=== PATIENT | male | born 1970 | race Two or more races ===

== ENCOUNTER 2020-08-07 08:37 | Inpatient (IN) | payer OTHER ==
[~2020-08-07] VITALS: Ht 175.3 cm; Wt 78.0 kg
[2020-08-07] VITALS (20 sets, daily range): BP systolic 101–133; BP diastolic 65–86
--- NOTE | 2020-08-07 07:14 | Anethesia Preoperative Eval ---
Anesthesia Pre-op PMH/ROS General Date of Evaluation: Aug 07, 2020 Anesthesiologist: Raman ASA Score: ASA 2 Mallampati Score Class I : Soft palate, uvula, fauces, pillars visible Class II: Soft palate, uvula, fauces visible Class III: Soft palate, base of uvula visible Class IV: Only hard plate visible Mallampati Classification: Class II Surgeon: Elvira Diagnosis: Lumbar radiculopathy Surgical Procedure: Left L3-4 discectomy Anesthesia History: none Family History: no anesthesia problems Allergies: Coded Allergies: CEFTRIAXONE (Verified Allergy, Severe, ANAPHYLACTIC SHOCK, 08/07/20) PENICILLINS (Verified Allergy, Severe, ANAPHYLACTIC SHOCK, 08/07/20) Medications: see eMAR Patient NPO?: Yes NPO Date: Aug 07, 2020 NPO Time: 00:00 Past Medical History Cardiovascular: Denies: HTN, CAD, NC, valve dz, arrhythmia, other Pulmonary: Denies: asthma, COPD, [place], other Gastrointestinal/Genitourinary: Denies: GERD, CRI, ESRD, other Neurologic/Psychiatric: Reports: depression/anxiety; Denies: dementia, CVA, TIA, other Endocrine: Denies: DM, hypothyroidism, steroids, other HEENT: Denies: cataract (L), cataract (R), glaucoma, [place] (L), [place] (R), other Hematology/Immune: Denies: anemia, DVT, bleeding disorder, other Musculoskeletal/Integumentary: Denies: OA, RA, DJD, DDD, edema, other PSxH Narrative: hydrocele sx, bilateral shoulder arthroscpies Anesthesia Pre-op Phys. Exam Physician Exam see chart Constitutional: NAD Cardiovascular: RRR Respiratory: CTA Airway Exam Mallampati Score: Class II MO: full ROM: full Teeth: intact Anesthesia Pre-op A/P Labs see chart Studies Pre-op Studies: EKG - sr, other - covid neg Risk Assessment & Plan Assessment: ASA II Plan: GA Status Change Before Surgery: No Pre-Antibiotics Drug: Clindamycin 600mg Given Within 1 Hr of Incision: Yes Imani Camargo MD Aug 07, 2020 07:14
[~2020-08-07 08:37] MED LIST: ceFAZolin sod 1 GM in NS 55 ML IVPB ONE
[2020-08-07] MEDS ORDERED: XANAX0.5 MG ORAL (09:14)
[2020-08-07] MEDS ORDERED: ADVIL200 MG ORAL (09:14)
[2020-08-07] MEDS ORDERED: AMBIEN10 M1 ORAL (09:14)
[2020-08-07] MEDS ORDERED: Clindamycin 600mg 50 ML IV ONE (10:09)
[2020-08-07] MEDS ORDERED: Lidocaine 1% MPF 10mg/ml 5ml ONE (10:16)
[2020-08-07] MEDS ORDERED: fentaNYL 100 mcg/2 mL IV ONE (10:16)
[2020-08-07] MEDS ORDERED: Midazolam 2mg/2ml Inj ONE (10:17)
[2020-08-07] MEDS ORDERED: Vancomycin 1gm vial IVPB ONE (10:22)
[2020-08-07] MEDS ORDERED: EPINEPHrine 1mg/1ml Amp ONE (10:22)
[2020-08-07] MEDS ORDERED: Gelfoam Size TOPIC ONE (10:23)
[2020-08-07] MEDS ORDERED: Bacitracin 50000 Units Vial ONE (10:23)
[2020-08-07] MEDS ORDERED: Thrombin 5000 units TOPIC ONE (10:23)
[2020-08-07] MEDS ORDERED: Bupivacaine 0.5% Inj 30 ml vial INJ ONE (10:23)
--- NOTE | 2020-08-07 10:26 | Pre-Procedure Note/Attestation ---
Pre-Procedure Note/Attestation Complete Prior to Procedure Procedure Narrative: L34 L Discectomy Indications for Procedure Pre-Operative Diagnosis: L34 HNP Attestation I attest that I discussed the nature of the procedure; its benefits; risks and complications; and alternatives (and the risks and benefits of such alternatives), prior to the procedure, with the patient (or the patient's legal retail field representative). I attest that, if there was a reasonable possibility of needing a blood transfusion, the patient (or the patient's legal retail field representative) was given the [facility] standardized written summary, pursuant to the [place] Blood Safety Act ([place] Health and Safety Code # 1645, as amended). I attest that I re-evaluated the patient just prior to the surgery and that there has been no change in the patient's H&P, except as documented below: Nii Felix MD Aug 07, 2020 10:26
--- NOTE | 2020-08-07 10:28 | Brief Operative Note ---
Immediate Post Operative Note Operative Note Pre-op Diagnosis: L34 HNP Procedure: L34 Discectomy Post-op Diagnosis: same as pre-op Findings: consistent w/pre-op dx studies Surgeon: gavin Anesthesiologist: Raman Anesthesia: general Specimen: none Complications: none Condition: stable Fluids: 800 Estimated Blood Loss: minimal Drains: none Implant(s) used?: No Nii Felix MD Aug 07, 2020 10:28
[2020-08-07] MEDS ORDERED: Sterile Water Irrig 1000ml IRRIG ONE (10:30)
[2020-08-07] MEDS ORDERED: NS Irrig 1000ml ONE (10:30)
[2020-08-07] MEDS ORDERED: LR 1000ml ONE (10:30)
[2020-08-07] MEDS ORDERED: Metoclopramide 10mg/2ml Inj ONE (10:30)
[2020-08-07] MEDS ORDERED: LORazepam Inj 2mg/ml 1ml IV PRN (11:15)
[2020-08-07] MEDS ORDERED: Hydromorphone 0.5mg/0.5ml inj IVP PRN (11:15)
[2020-08-07] MEDS ORDERED: Midazolam 2mg/2ml Inj IVP PRN (11:15)
[2020-08-07] MEDS ORDERED: DiphenhydrAMINE 50mg/ml Inj IVP PRN (11:15)
[2020-08-07] MEDS ORDERED: LR 1000ml 1,000 ML IVLG SCH (11:15)
[2020-08-07] MEDS ORDERED: Metoclopramide 10mg/2ml Inj IVP PRN ×2 (11:15→12:15)
[2020-08-07] MEDS ORDERED: fentaNYL 100 mcg/2 mL IV PRN (11:15)
[2020-08-07] MEDS ORDERED: Milk of Magnesia 30ml Ud ORAL PRN (12:15)
--- NOTE | 2020-08-07 12:27 | Immediate Post-Op Evaluation ---
Immediate Post-Op Evalulation Immediate Post-Op Evalulation Procedure: Left L3-4 discectomy Date of Evaluation: Aug 07, 2020 Time of Evaluation: 12:30 IV Fluids: 800 Blood Products: 0 Estimated Blood Loss: 25 Urinary Output: 0 Blood Pressure Systolic: 101 Blood Pressure Diastolic: 65 Pulse Rate: 81 Respiratory Rate: 16 O2 Sat by Pulse Oximetry: 99 Temperature (Fahrenheit): 97.3 Pain Score (1-10): 0 Nausea: No Vomiting: No Complications 0 Patient Status: awake, reacts, patent, none Hydration Status: adequate Drug: Clindamycin Given Within 1 Hr of Incision: Yes Imani Camargo MD Aug 07, 2020 12:27
--- NOTE | 2020-08-07 13:56 | Diagnostic Imaging Report ---
INDICATION: Pain, intraoperative TECHNIQUE: Intraoperative imaging Fluoroscopy time: 3.8 seconds Total dose: 0.30789 mGym2 Total number of images: 1 COMPARISON: None FINDINGS: Intraoperative images demonstrate a surgical tool projected posterior to the L4 vertebral body. IMPRESSION: Intraoperative imaging, as described
[2020-08-07] MEDS: D5 1/2NS 1,000 ML IV SCH ×2 (14:28→23:26)
--- NOTE | 2020-08-07 14:30 | NUR ---
NURSE NOTES: patient was admitted to room 320-1 s/p left L3-4 diskectomy by . received report from Gracie Qureshi. a&Ox 4, verbally responsive. pain on left lower back to hip 6-05/04. lung sound clear. active bowel sound. IV on right hand. intact. surgical site on left lower back dressing intact. put ice bag for pain,checked and counted belongings with patient. bed in the lowest position and locked. call light within reach. will continue to provide plan of care.
--- NOTE | 2020-08-07 14:41 | 48 Hour Post Anesthesia Eval ---
Post Anesthesia Evaluation Procedure: Left L3-4 discectomy Date of Evaluation: Aug 07, 2020 Time of Evaluation: 14:40 Blood Pressure Systolic: 116 0: 72 Pulse Rate: 70 Respiratory Rate: 15 Temperature (Fahrenheit): 97.2 O2 Sat by Pulse Oximetry: 100 Airway: patent Nausea: No Vomiting: No Pain Intensity: 2 Hydration Status: adequate Cardiopulmonary Status: Stable Mental Status/LOC: patient returned to baseline Follow-up Care/Observations: 0 Post-Anesthesia Complications: 0 Follow-up care needed: N/A Nnamdi Jin MD Aug 07, 2020 14:41
--- NOTE | 2020-08-07 15:00 | Operative Note - Dictated ---
DATE OF OPERATION: 08/07/2020 PREOPERATIVE DIAGNOSIS: L3-L4 left-sided extraforaminal disk herniation. POSTOPERATIVE DIAGNOSIS: L3-L4 left-sided extraforaminal disk herniation. OPERATION PERFORMED: 1. Left-sided L3-L4 diskectomy. 2. Use of fluoroscopy. 3. Use of operating microscope. 4. Neurodiagnostic monitoring. SURGEON: Nii Felix MD. SENIOR DOT NET DEVELOPER: None. ANESTHESIOLOGIST: Dr. Imani Camargo. ANESTHESIA TYPE: General endotracheal anesthesia. ESTIMATED BLOOD LOSS: Minimal. FLUIDS: 800 mL. COMPLICATIONS: None. FINDINGS: Disk extrusion far-lateral extraforaminal region under the dorsal root ganglion. INDICATIONS: The patient is a very pleasant gentleman with fairly intractable back pain and left lower extremity L3 thigh pain. Conservative care failed. MRIs confirmed a large extruded disk fragment in the far lateral extraforaminal region. Surgical intervention was recommended. The patient elected to proceed. RISKS NOTE: The patient was explained in detail risks and benefits of surgery to include, but not be limited to those of bleeding, infection, damage to nerves, vessels, tendons, anesthetic risk, allergic reaction, aspiration, and possibly . The patient understood and wished to proceed. Possible risk of recurrent disk herniation and need for additional surgery such as fusion were discussed. OPERATIVE PROCEDURE IN DETAIL: The patient was taken to the operative suite. After general endotracheal anesthesia was obtained, he was turned prone onto a Luis Alberto frame. All bony prominences were well padded. The back was prepped and draped in usual sterile fashion. A needle was placed at the L3-L4 space and this was radiographically confirmed. At this point, a 5 cm lateral to the midline vertical incision was marked out at the L3-L4 interspace. The incision was infiltrated with Marcaine with epinephrine. Incision was carried down through subcutaneous. The dorsal fascia was incised. The interval between the longissimus and multifidus muscles were bluntly dissected and blunt dissection was carried out to the area of the transverse processes at L3 and L4. These were radiographically confirmed. Self-retaining retractor was then put into place. Operating microscope was brought into place. The intertransverse fascia was then incised distally and elevated off of the nerve roots. Care was taken to avoid excess manipulation of the dorsal root ganglion and to avoid damaging the innervation. At this point, the nerve root was identified and gently retracted laterally. The disk space was identified and proximal exploration of the outer annulus confirmed the location of the disk extrusion. The location of the disk extrusion along with the pseudocapsule formed around it was then excised. The extruded disk fragment was removed in a piecemeal fashion. Probing of the disk space was also performed demonstrating a degenerated disk with multiple loose fragments within the disk, which were removed with a straight pituitary. Once the mechanical debulking of the loose disk fragments as well as the extruded fragment was completed, copious intradiscal irrigation was performed. Additional loose fragments were removed. At this point, FloSeal was applied to achieve meticulous hemostasis. Decision was then made to close. The fascia was repaired using #1 Vicryl, subcutaneous closure using 2-0 Vicryl. Dermabond was applied. Sterile dressing was applied. At the time of this dictation, the patient was awaiting extubation. [facility] Myrtle Felix DR: ERICKA JOB#: [id number] CC:
--- NOTE | 2020-08-07 15:00 | NUR ---
NURSE NOTES: called for pain medication and received order of dilaudid 0.5mg IVP Q2hrs for moderate pain. also MD wants nurse ask to patent that he has ever taken norco or percocet before and if any, which medication works for the pain. MD wants nurse call back to him few hours later for effectiveness of pain medication. order noted and carried out.
[2020-08-07] MEDS: Hydromorphone 0.5mg/0.5ml inj IVP PRN ×5 (15:24→23:26)
[2020-08-07] MEDS: Clindamycin 600mg 50 ML IV SCH ×2 (16:34→21:25)
--- NOTE | 2020-08-07 17:13 | NUR ---
NURSE NOTES patient said dilaudid 0.5 mg does not relieve pain completely and asked if doctor would increase dosage. notified Dr. Charles and no new order at this time, also, notified MD that patient had percocet before but did not work for pain. is aware.
[2020-08-07] MEDS: Docusate 100mg cap ORAL SCH (17:22)
--- NOTE | 2020-08-07 17:40 | NUR ---
NURSE NOTES: received call from . continue dilaudid 0.5mg Q2hr for now and monitor pain. new order of Oxycodone IR 1mg PO PRN Q3 hrs for mild pain. TORB. order noted and carried out.
[2020-08-07] MEDS ORDERED: oxyCODONE 5mg IR tab ORAL PRN ×2 (17:45→20:30)
--- NOTE | 2020-08-07 18:14 | NUR ---
NURSE NOTES: patient has not voided since surgery. 287ml with bladder scan. no c/o urgency or discomfort at this time. notified dr. Green and received order of flomax 0.4mg po once now and monitor voiding, if not perform bladder scan and notify Dr. Green
[2020-08-07] MEDS ORDERED: Tamsulosin 0.4mg cap ORAL SCH (18:15)
--- NOTE | 2020-08-07 19:20 | NUR ---
NURSE HAND-OFF: Important Events on Shift:s/p l3-4 diskectomy, pain management. Patient Status: stable Diet: clear liquid able to upgrade to regular Pending Orders: n/a Pending Results/Labs:n/a Pending MD notification:n/a Latest Vital Signs: Temperature 98.1 , Pulse 81 , B/P 132 /78 , Respiratory Rate 18 , O2 SAT 97 , Room Air, O2 Flow Rate 3 . Vital Sign Comment: stable Latest Fairchild Fall Score: 20 Fall Risk: Low Risk Safety Measures: Call light Within Reach, Bed Alarm Zone 2, Side Rails Side Rails x2, Bed position Low and Locked. Fall Precautions: Yellow Socks Report given to DONITA Cage.
--- NOTE | 2020-08-07 19:59 | NUR ---
NURSE NOTES: Received patient awake, alert, verbal, resting in bed, no SOB noted, voiding uses urinal.
[2020-08-07] MEDS ORDERED: Chloraseptic Spray 20mL Bottle ORAL PRN (20:30)
[2020-08-07] MEDS ORDERED: Zolpidem 5mg tab ORAL PRN ×2 (20:30→21:30)
[2020-08-07] MEDS ORDERED: ALPRAZolam 0.5mg tab ORAL PRN (20:30)
[2020-08-07] MEDS: oxyCODONE 5mg IR tab ORAL PRN (22:31)
--- NOTE | 2020-08-07 23:15 | Consultation ---
DATE OF CONSULTATION: 08/07/2020 CONSULTING PHYSICIAN: Sukhdev Charles MD. REFERRING PHYSICIAN: Nii Felix MD. REASON FOR CONSULTATION: Acute pain consult. HISTORY OF PRESENT ILLNESS: Dear Dr. Nii Felix, Thank you kindly for consulting me to evaluate and render an opinion as to how to proceed in the management of this patient's acute postoperative lumbar spine pain after his decompressive lumbar spine surgery today. The patient is a pleasant gentleman, who I saw at the bedside. The patient complained of severe postoperative pain after his lumbar spine surgery today. He was trialed on multiple breakthrough doses of pain medication, but still stated that his pain control was inadequate. You consulted me to help manage his postoperative care and pain management. I saw the patient at bedside. I performed detailed history and physical examination. I discussed the case with the PACU recovery room nurse, DONITA Tidwell, along with the orthopedic floor nurse, DONITA Gilliland. At the bedside, I performed a detailed history and physical examination. I spent over 75 minutes in consultation with an additional 30 minutes in medical record review. Multiple records were reviewed including utilization review and surgical authorization by [facility] Utilization Review, authorizing lumbar spine surgery with hospital stay, hospitalization as certified. Further record review include preoperative history and physical along with diagnostic testing. Office records from Dr. Nii Felix, physician's progress report SC-2 dated May 23, 2020. Multiple records were reviewed from today's date of surgery at [facility], August 07, 2020 including consent for surgical treatment, consent for anesthesia, consent for blood products, medication administration record, medication reconciliation order form, PACU record, PACU orders, anesthesia record, pre- and post anesthesia evaluation record, guidelines for prophylactic antibiotics, guidelines for DVT prophylaxis, initial nursing assessment, 24-hour medical and surgical flow sheet, Olvera-Perez diagram for cognitive disability. PAST MEDICAL HISTORY: 1. Acute postoperative lumbar spine pain, status post decompressive lumbar spine surgery with Dr. Nii Felix, July 2020. 2. Work-related injury. 3. Anxiety. 4. Insomnia. PAST SURGICAL HISTORY: Bilateral shoulder surgeries. FAMILY HISTORY: Malignancy. SOCIAL HISTORY: Social alcohol usage. The patient denies tobacco or marijuana usage. REVIEW OF SYSTEMS: Per Dr. Green. ALLERGIES: Ceftriaxone and penicillin. MEDICATIONS: At home are Ambien, Advil, Xanax 0.5 mg, Cialis. PHYSICAL EXAMINATION: VITAL SIGNS: Age 49. Height 5 feet 9 inches, weight 174 pounds. Body mass index 26. Vital signs shows pain level 8/10 on the visual analog pain scale. Afebrile, pulse 83, respirations 18, blood pressure 125/84. Oxygen saturation 97% on room air. HEENT: Normocephalic and atraumatic. CHEST: Clear to auscultation. HEART: Regular rate and rhythm. MUSCULOSKELETAL: Lumbar spine with dry dressing. Painful by incision area with minimal paraspinal muscle spasms appreciated. Moving all extremities x4 with 5/5 dorsiflexion and 5/5 plantar flexion in bilateral lower extremities. GENITOURINARY: Deferred. PREOPERATIVE DIAGNOSTIC TESTING: August 06, 2020 shows urinalysis negative. INR 1.0, PTT 22. Sodium 139, potassium 4.0, chloride 104, bicarb 26, BUN 13, glucose 84, creatinine 1.1. Calcium 9.1. Total protein 6.9, albumin 4.5. Alkaline phosphatase 55, AST 20, ALT 25, total bilirubin is 1.3. White count 7, hematocrit 47, platelets 182,000. IMPRESSION: 1. Acute postoperative lumbar spine pain, status post decompressive lumbar spine surgery with Dr. Nii Felix, July 2020. 2. Work-related injury. 3. Anxiety. 4. Insomnia. TREATMENT RECOMMENDATIONS: In the past, the patient has stated that pain medications worked poorly on him. He has used oxycodone in the past with decent efficacy. He denies tobacco or marijuana usage. He does have a history of anxiety, uses Xanax frequently as needed. I designed the following analgesic plan for his pain control postoperatively. I have added a breakthrough dose of Dilaudid 0.5 mg intravenously every two hours p.r.n. for severe pain. I have added a dose of Xanax 0.5 mg orally every 6 hours p.r.n. for anxiety. I have made available 10 mg of oxycodone Instant Release p.r.n. for moderate pain. I have also made available Ambien 10 mg p.r.n. for insomnia. I have notified the nursing team and the pharmacy staff to wait at least 60 minutes between any doses of sedating agents. I have added Benadryl 25 mg orally every 6 hours p.r.n. for itching complaints. I have ordered Zofran 4 mg intravenously every 4 hours p.r.n. as a rescue anti-emetic medication. I will place the patient on Pepcid 20 mg b.i.d. along with p.r.n. dose of Mylanta 30 mL every 6 hours in case of any GERD symptom exacerbation. I have also asked the Chloraseptic spray to be placed at the bedside in case of any postoperative sore throat complaints. The patient has already been voiding urine. I provided a prescription for Percocet 10 mg tablets quantity 50 for outpatient usage. We will see how the patient progresses with physical therapy in the morning. Sukhdev Charles M.D. DR: TRUMAN JOB#: [id number] CC:
[2020-08-08] MEDS: Hydromorphone 0.5mg/0.5ml inj IVP PRN ×5 (01:22→10:07)
[2020-08-08] MEDS: Clindamycin 600mg 50 ML IV SCH ×2 (03:26→10:07)
[2020-08-08 03:48] VITALS: BP 105/63
--- NOTE | 2020-08-08 06:54 | NUR ---
HAND-OFF: Report given to Juanita Pacheco RN.
--- NOTE | 2020-08-08 07:46 | NUR ---
NURSE NOTES: Received report from DONITA Cage. Round was done. Pt awake in bed on RA, alert and oriented. Breathing even and unlabored. No acute distress noted. Pt c/o pain 05/04. Will administer prn pain med as ordered. Surgical dressing clean, dry and intact. IV intact and running IVF as ordered. Discussed plan of care. Call light within reach. Will continue to monitor.
[2020-08-08] MEDS: Docusate 100mg cap ORAL SCH (07:57)
[2020-08-08 08:00] VITALS: BP 119/65
[2020-08-08] MEDS: Metamucil Pkt ORAL SCH ×2 (08:33→13:01)
--- NOTE | 2020-08-08 09:00 | NUR ---
PT EVALUATION NOTE Patient seen for initial evaluation and treatment initiated. Patient presents with pain and impaired functional mobility s/p lumbar surgery. Patient instructed in back precautions and proper log roll technique. Patient required CGA/min assist for bed mobility using log roll technique. CGA for transfers without assistive device. Patient able to ambulate 200 ft with SBA/CGA without assistive device. Patient will benefit from skilled inpatient PT intervention to increase strength and postural stability for improved level of functional mobility and safety, and for compliance with spine precautions. Anticipate discharge home once medically cleared by MD. Recommend raised toilet seat for home. Addendum: 08/08/20 at 1236 by ANU AVILA PT Amended: Links added.
[2020-08-08] MEDS: D5 1/2NS 1,000 ML IV SCH (10:07)
--- NOTE | 2020-08-08 10:37 | NUR ---
CASE MANAGEMENT:INITIAL REVIEW 08/07/20 49 YR OLD MALE FOR SCHEDULED SURGERY SI;LT SIDED L3-L4 DISCECTOMY 97.3 81 20 133/76 100% ON RA LUMBAR SPINE XRAY ~ Intraoperative images demonstrate a surgical tool projected posterior to the L4 vertebral body. IS;CEFAZOLIN IV IVF LR ADMITTED TO MED SURG DCP;PATIENT IS FROM HOME CASE MANAGEMENT:REVIEW 08/08/20 SI;POD #1 LT SIDE L3-L4 DISCECTOMY 98.3 100 16 119/65 94% ON RA IS;PEPCID PO BID BENADRYL IV PO Q6 PRN CLINDAMYCIN IV Q6 DILAUDID IV Q2 PRN IVF D5NS @ 100 ML/HR MED SURG STATUS DCP;PATIENT IS FROM HOME Addendum: 08/08/20 at 1055 by TOM OMALLEY LVN LVN INTERQUAL CRITERIA MET
[2020-08-08] MEDS: oxyCODONE 5mg IR tab ORAL PRN ×2 (11:01→14:03)
--- NOTE | 2020-08-08 11:02 | NUR ---
NURSE NOTES: Spoke to regarding pain medication. Per :1. D/C Dilaudid, 2. Give PRN Oxycodone dose now and give Xanax 1 hr after, 3. At 2PM, Give Oxycodone. Order noted and carried out. Addendum: 08/08/20 at 1108 by VIKY VÁSQUEZ RN NURSE NOTES: Per : Spoke to and discharge patient afternoon today.
[2020-08-08 12:00] VITALS: BP 115/68
--- NOTE | 2020-08-08 14:40 | NUR ---
NURSE NOTES: Pt in stable condition. Provided discharge instruction, Rx,education for after care, follow up, and DME. Pt verbalized understanding. All belongings were accounted for. IV and ID band removed. Pt walked to down stair and accompanied with boyfriend.
--- NOTE | 2020-08-08 15:24 | Pain Management Progress Note ---
Allergies: Coded Allergies: CEFTRIAXONE (Verified Allergy, Severe, ANAPHYLACTIC SHOCK, 08/07/20) PENICILLINS (Verified Allergy, Severe, ANAPHYLACTIC SHOCK, 08/07/20) Vitals Vital Signs Date Time Temp Pulse Resp B/P (MAP) Pulse Ox O2 Delivery O2 Flow Rate FiO2 08/08/20 12:00 98.6 100 18 115/68 (84) 97 08/08/20 10:37 97.8 08/08/20 09:00 Room Air 08/08/20 08:27 97.8 08/08/20 08:00 98.3 100 16 119/65 (83) 97 Medications Current Medications Acetaminophen (Tylenol) 650 mg Q4H PRN ORAL headache; Start 08/07/20 at 12:15; Stop 09/06/20 at 12:14 Al Hydroxide/Mg Hydroxide (Mylanta) 30 ml Q6H PRN ORAL gerd Last administered on 08/07/20at 21:34; Start 08/07/20 at 20:30; Stop 09/06/20 at 20:29 Alprazolam (Xanax) 0.5 mg Q6H PRN ORAL For Anxiety Last administered on 08/08/20at 13:01; Start 08/07/20 at 20:30; Stop 08/14/20 at 20:29 Clonidine HCl (Catapres Tab) 0.1 mg Q8H PRN ORAL For High Blood Pressure; Start 08/07/20 at 20:30; Stop 11/05/20 at 20:29 Dextrose/Sodium Chloride 1,000 ml @ 100 mls/hr Q10H IV Last administered on 08/08/20at 10:07; Start 08/07/20 at 14:28; Stop 09/06/20 at 14:27 Diphenhydramine HCl (Benadryl) 25 mg Q6H PRN ORAL Itching Last administered on 08/08/20at 08:33; Start 08/07/20 at 20:30; Stop 09/06/20 at 20:29 Docusate Sodium (Colace) 100 mg TWICE A DAY ORAL Last administered on 08/08/20at 07:57; Start 08/07/20 at 18:00; Stop 09/06/20 at 17:59 Famotidine (Pepcid) 20 mg BID ORAL Last administered on 08/08/20at 08:33; Start 08/08/20 at 09:00; Stop 11/06/20 at 08:59 Magnesium Hydroxide (Mom) 30 ml QIDPRN PRN ORAL Constipation; Start 08/07/20 at 12:15; Stop 09/06/20 at 12:14 Ondansetron HCl (Zofran) 4 mg Q4H PRN IVP Nausea & Vomiting; Start 08/07/20 at 20:30; Stop 09/06/20 at 20:29 Oxycodone HCl (Roxicodone) 10 mg Q3H PRN ORAL Moderate Breakthru Pain (5-7) Last administered on 08/08/20at 14:03; Start 08/07/20 at 20:30; Stop 08/14/20 at 20:29 Phenol/Menthol (Chloraseptic) 1 spray Q2H PRN ORAL sore throat Last administered on 08/08/20at 05:36; Start 08/07/20 at 20:30; Stop 11/05/20 at 20:29 Psyllium Hydrophilic Mucilloid (Metamucil) 1 pkt THREE TIMES A DAY ORAL Last administered on 08/08/20at 13:01; Start 08/08/20 at 09:00; Stop 09/07/20 at 08:59 Zolpidem Tartrate (Ambien) 10 mg HSPRN PRN ORAL Insomnia; Start 08/07/20 at 21:30; Stop 08/14/20 at 20:29 Plan: Patient seen with nursing team Juanita. Discussed with surgeon Dr Felix. No hemovac drain. Neuro intact. VSS. Pain level 7 / 10 on the visual-analog pain scale. MAR medication list reviewed. Pt used prn IV dilaudid mostly throughout the night with DONITA Cage. Transitioned to po oxycodone-Ir 10 mg this morning. Added prn xanax doses as well for considerable postop anxiety. Advancing diet tolerated without emesis. GI: +BS +flatus No BM Encourage incentive spirometer usage. Encourage advancing ambulation with physical therapy as tolerated. Pt did well with ambulating in hallways. SCDs for mechanical prophylaxis against deep venous thrombosis and PEs. Discussed discharge planning with RNs & surgeon to help expedite hospital discharge. Boyfriend can assist with ADL at home. Rx left for outpatient pain medication usage for Percocet 10325. Agree with d/c trial home later today. Sukhdev Charles MD Aug 08, 2020 15:24
--- NOTE | 2020-08-09 13:34 | Discharge Summary ---
Discharge Summary Hospital Course Date of Admission Aug 07, 2020 at 08:47 Date of Discharge Aug 08, 2020 at 14:40 Admitting Diagnosis L3-L4 left-sided extraforaminal disk herniation. Reason for Hospitalization: Elective surgery HPI Marito Raygoza is a 49 year old male who was admitted on Aug 07, 2020 at 08:47 for Left Lower Extremity Radiculopathy with L3-L4 left-sided extraforaminal disk herniation. Patient was admitted for elective surgery. Consultations Dr Charles pain specialist Procedures s/p 08/07/[address] Felix 1. Left-sided L3-L4 diskectomy. 2. Use of fluoroscopy. 3. Use of operating microscope. 4. Neurodiagnostic monitoring. Hospital Course status post surgery course of recovery uneventful initially IV fluids s/p perioperative antibiotic and steroid neurovascular status closely monitored, remained stable incision remained clean dry and intact pain management was addressed pain specialist followed; pain was controlled remained hemodynamically stable ambulated with PT fall precautions maintained; safe for ambulation DVT prophylaxis provided use of incentive spirometry was encouraged while in the bed tolerated diet , IV fluids discontinued GI prophylaxis provided antiemetics were on board as needed voided freely bowel regimen instituted patient was stable for discharge discharge instructions provided follow up with surgeon in the office as advised FINAL DIAGNOSES L3-L4 left-sided extraforaminal disk herniation s/p Left-sided L3-L4 diskectomy. Discharge Medications Continued Medications: Alprazolam* (Xanax*) 0.5 Mg Tablet 0.5 MG ORAL NEEDED for ANXIETY, TAB Zolpidem Tartrate* (Ambien*) 10 Mg Tablet 10 MG ORAL HS PRN for Insomnia, TAB Discontinued Medications: Ibuprofen* (Advil*) 200 Mg Tablet 200 MG ORAL Q6H for PAIN, TAB Discharge Condition Upon Discharge: stable Discharge Vital Signs Last Vital Signs Date Time Temp Pulse Resp B/P (MAP) Pulse Ox O2 Delivery O2 Flow Rate FiO2 08/08/20 12:00 98.6 100 18 115/68 (84) 97 08/08/20 09:00 Room Air 08/07/20 13:50 3 Discharge Disposition Patient was discharged to Home (01) Discharge Instructions Discharge Instructions Special Instructions I have been assigned to complete a D/C Summary on this account. I was not involved in the patient management Rody Kelly [employer] Aug 09, 2020 13:34
== END 2020-08-08 14:40 | disposition home or self-care (01) | DRG 520 ==
LOC: SDSOVERFLO 08:47 → 3E 14:10
PROC: 0SB20ZZ Excision of Lumbar Vertebral Disc, Open Approach (ICD-10-PCS; principal; 2020-08-07 10:30)
DX: M51.16 Intervertebral disc disorders with radiculopathy, lumbar region (principal); F41.9 Anxiety disorder, unspecified; G89.18 Other acute postprocedural pain; Z88.0 Allergy status to penicillin; Z88.8 Allergy status to other drugs, medicaments and biological substances; G47.00 Insomnia, unspecified
CPT/HCPCS: 36415; 72020; 76000; 86850; 86900; 86901; 87081; 94003; 94150; J2250; J2405; J2765; S0077